=== PATIENT | female | born 1990 | race Two or more races ===

== ENCOUNTER 2017-07-15 21:01 | Inpatient (IN) | payer OTHER ==
[2017-07-15] MEDS ORDERED: BICITRA 30ML SOLN UDC As Ordered (22:27)
[2017-07-15] MEDS ORDERED: ceFAZolin 2 GM/D5W 50 ML IV BAG (J0690 PER 500MG) As Ordered (22:28)
[2017-07-15] MEDS: BICITRA 30ML SOLN UDC PO (22:30)
[2017-07-15] MEDS: BETAMETHASONE SOLUSPAN 6MG/ML INJ 5ML (J0702) IM (22:30)
[2017-07-15 22:54] LABS: HEMOGLOBIN 16.4 g/dl (12.0-16.0); MEAN CORPUSCULAR HEMOGLOBIN 28.4 pg (27.0-33.0); MEAN CORPUSCULAR HGB CONC 34.2 g/dl (32.0-36.5); MEAN CORPUSCULAR VOLUME 83.2 fl (80.0-96.0); PLATELET COUNT, AUTOMATED 183 10^3/uL (150-450); RED BLOOD COUNT 5.77 10^6/uL (4.00-5.40); WHITE BLOOD COUNT 7.4 10^3/uL (4.0-10.0)
[2017-07-15] MEDS ORDERED: NALBUPHINE HCL 10 MG/ML AMP (J2300) IV (23:34)
[2017-07-15] MEDS ORDERED: NALOXONE INJ 0.4 MG/1 ML VIAL (J2310) IV ×2 (23:34)
[2017-07-15] MEDS ORDERED: PHENYLephrine HCL 500 MCG/5 ML (100MCG/ML) SYRINGE (J2370) As Ordered (23:46)
[2017-07-15] MEDS ORDERED: MORPHINE PRES-FREE INJ 10 MG/10 ML VIAL (J2274) As Ordered (23:46)
[2017-07-15] MEDS ORDERED: KETOROLAC 60 MG/2 ML VIAL (J1885) As Ordered (23:46)
[2017-07-15] MEDS ORDERED: OXYTOCIN INJ 10 UNITS/ML VIAL (J2590) As Ordered ×3 (23:46→23:58)
[2017-07-15] MEDS ORDERED: ONDANSETRON 4MG/2ML VIAL (J2405) As Ordered (23:46)
[2017-07-15] MEDS ORDERED: ePHEDrine INJ 50 MG/ML VIAL As Ordered (23:47)
[2017-07-16] MEDS ORDERED: PROMETHAZINE 25 MG TAB PO (00:30)
[2017-07-16] MEDS ORDERED: PERCOCET 5MG/325MG TAB PO (00:30)
[2017-07-16] MEDS ORDERED: METHYLERGONOVINE MALEATE 0.2 MG TAB PO (00:30)
[2017-07-16] MEDS ORDERED: MOM 30ML SUSPENSION UDC PO (00:30)
[2017-07-16] MEDS ORDERED: NALBUPHINE HCL 10 MG/ML AMP (J2300) IV (02:15)
[2017-07-16] MEDS ORDERED: fentaNYL 100 MCG/2 ML INJECTION (J3010) IV (02:15)
[2017-07-16] MEDS ORDERED: ONDANSETRON 4MG/2ML VIAL (J2405) IV (02:15)
[2017-07-16] MEDS: LR 1,000 ML IV ×4 (03:27→16:29)
[2017-07-16] MEDS: ONDANSETRON 4MG/2ML VIAL (J2405) IV (04:53)
[2017-07-16] MEDS: KETOROLAC 30 MG/ML VIAL (J1885) IV ×4 (06:08→23:53)
[2017-07-16] MEDS: METOCLOPRAMIDE INJ 10MG/2ML VIAL (J2765) IV (10:20)
[2017-07-16] MEDS: DOCUSATE SODIUM 100 MG CAP PO (10:20)
[2017-07-16] MEDS: PRENATAL VITAMINS CHEWABLE TABLET PO (10:20)
[2017-07-17] MEDS: LR 1,000 ML IV ×2 (00:29→08:29)
[2017-07-17] MEDS: RHOGAM 300 MCG (1500 IU) INJ (J2790) IM (07:27)
[2017-07-17] MEDS: MEASLES,MUMPS,RUBELLA VACCINE INJ (MMR-II) (90707) SC (07:28)
[2017-07-17] MEDS: PRENATAL VITAMINS CHEWABLE TABLET PO (07:38)
[2017-07-17] MEDS: IBUPROFEN 800 MG TAB PO ×3 (07:38→23:47)
[2017-07-17] MEDS: DOCUSATE SODIUM 100 MG CAP PO (07:39)
[2017-07-17 07:41] LABS: HEMATOCRIT 30.2 % (36.0-47.0); MEAN CORPUSCULAR HEMOGLOBIN 28.9 pg (27.0-33.0); MEAN CORPUSCULAR HGB CONC 33.8 g/dl (32.0-36.5); MEAN CORPUSCULAR VOLUME 85.6 fl (80.0-96.0); PLATELET COUNT, AUTOMATED 192 10^3/uL (150-450); RED BLOOD COUNT 3.53 10^6/uL (4.00-5.40); RED CELL DISTRIBUTION WIDTH 14.3 % (11.5-14.5); WHITE BLOOD COUNT 10.7 10^3/uL (4.0-10.0)
[2017-07-17 07:44] LABS: HEMOGLOBIN 10.2 g/dl (12.0-16.0)
[2017-07-17] MEDS: PERCOCET 5MG/325MG TAB PO ×2 (15:23→22:44)
[2017-07-18] MEDS: PERCOCET 5MG/325MG TAB PO (03:42)
[2017-07-18] MEDS: PRENATAL VITAMINS CHEWABLE TABLET PO (08:09)
[2017-07-18] MEDS: IBUPROFEN 800 MG TAB PO (08:10)
[2017-07-18] MEDS: DOCUSATE SODIUM 100 MG CAP PO (08:28)
== END 2017-07-18 11:53 | disposition home or self-care (01) | DRG 765 ==
LOC: M LDO 21:01 → M OBS 07-16 00:16 → M LDI 22:23
PROVIDERS: Student in an Organized Health Care Education/Training Program
PROC: 10D00Z1 Extraction of Products of Conception, Low, Open Approach (ICD-10-PCS; principal; 2017-07-15 23:21)
DX: O42.013 Preterm premature rupture of membranes, onset of labor within 24 hours of rupture, third trimester (principal); O30.043 Twin pregnancy, dichorionic/diamniotic, third trimester; Z3A.34 34 weeks gestation of pregnancy; Z37.2 Twins, both liveborn; O32.0XX2 Maternal care for unstable lie, fetus 2